=== PATIENT | male | born 1945 | race Caucasian/White ===

== ENCOUNTER 2017-11-29 06:58 | Inpatient (IN) ==
--- NOTE | 2017-11-29 07:26 | PDOC ---
General Adult HPI - General Chief Complaint: Nasal/Mouth Problem /Injury Stated Complaint: nose bleed and dark stools Date Seen by Provider: 11/29/17 Time Seen by Provider: 07:11 Source: POSITIVE: Patient Exam Limitations: POSITIVE: No limitations Nurse's Notes Reviewed & Considered: Yes - History of Present Illness Initial Comment: This is a well-developed, well-nourished, very pleasant, 72-year-old male, complaining of nosebleed and black tarry stool. Patient was awakened at 0600 hrs. this morning with a nosebleed that was quite profuse. He applied pressure and found that he needed to defecate. His stool was black and tarry and this concerned him. Patient is presently on Plavix, warfarin, and aspirin for a St. Dany's mitral valve and 2 cardiac stents. Patient does not smoke or use tobacco or alcohol. At this time he denies any headache, no sore throat, no chest pain or shortness of breath, no nausea vomiting or diarrhea, no abdominal pain, no hematuria or dysuria, no rashes. Have you received a tetanus shot in the past 10 years?: No Body Location Affected: REPORTS: Abdomen, Other (Nose) Timing: REPORTS: Abrupt Duration: 1-3 hours Severity: Moderate Context: REPORTS: Sleep Modifying Factors: improves with: Nothing Similar Symptoms Previously: Yes Recent Care Received: REPORTS: Recently Seen, Treated by MD, Surgery (Cardiac stents) Any Prior Injuries Related to Current Complaint?: No - Patient Home Medications Home Medications: Home Medications warfarin 5 mg tablet 5 mg PO QDAY #90 tab 08/12/17 nitroglycerin 0.4 mg sublingual tablet 0.4 mg SL Q5-15M PRN 8 Days #8744 tab Aspirin [Aspir 81] 81 mg PO .BEDTME 10/19/17 Clopidogrel [Plavix] 75 mg PO DAILY 10/19/17 atorvastatin 10 mg tablet 10 mg PO .BEDTIME #90 tab 10/27/17 - Patient Allergies Allergies/Adverse Reactions: Allergies 3 Allergy/AdvReac Type Severity Reaction Status Date / Time Penicillins Allergy Unknown SWELLING Verified 11/29/17 07:03 erthromycin Allergy Unknown SWELLING Uncoded 11/29/17 07:03 Past Medical History - heen HEENT History: Denies History Cardiovascular History: Valvular Heart Disease Respiratory History: Denies History Gastrointestinal History: Denies History Genitourinary History: Denies History Endocrine History: Denies History Musculoskeletal History: Denies History Prosthesis or Implant: No Neurological History: Denies History Blood Disorders: Denies History Psychiatric History: Denies History History of Sexually Transmitted Diseases: No Cancer History: Denies History In Past Year Been Physically Harmed or Verbally Threatened: No History of MDRO: No History of Other Communicable Diseases: No Tobacco Use: Never Smoker In the Past 12 Months, Have Used or Abuse Any Substance: None Previous Surgical History: Yes Type / Date of Surgery: Mitral valve replacement-1992. Hernia repair x2 ( bilateral inguinal)-2005 Anesthesia Reactions: No Malignant Hyperthermia: No Significant Family History: No pertinent family hx ROS Constitution: REPORTS: Denies Symptoms Cardiovascular: REPORTS: Denies Cardiac Symptoms Respiratory: REPORTS: Denies Resp Symptoms Neurological: REPORTS: Denies Neuro Symptoms Gastrointestinal: REPORTS: Black Stools Endocrine: REPORTS: Denies Symptoms Musculoskeletal: REPORTS: Denies MS Symptoms Genitourinary: REPORTS: Denies Symptoms Eyes: REPORTS: Denies Symptoms ENT: REPORTS: Nose Bleed Skin: REPORTS: Denies Skin Symptoms Lympathic: REPORTS: Denies Lympathic Symptoms Immunologic: POSITIVE: Denies Symptoms Psychiatric: POSITIVE: Denies Psych Symptoms General Adult Exam - General Appearance General Appearance: POSITIVE: Alert, Cooperative, No Acute Distress, No Evidence of Trauma - HEENT HEENT: POSITIVE: Head Inspection Nml, Eyes Inspection Nml, Ears Inspection Nml, Nose Inspection Nml, Oral/Dental Inspect. Nml, Pharynx Inspect. Nml, PERRL, EOMI - Pupils Pupil Size: 5 mm: Bilateral - Neck Neck: POSITIVE: Normal Inspection, Thyroid Normal - Respiratory Respiratory: POSITIVE: No Respiratory Distress, Breath Sounds Normal, Chest Non- Tender - Cardiovascular Cardiovascular: POSITIVE: Regular Rate & Rhythm, No Murmur, No Gallop, PMI Normal Peripheral Pulses: Radial (R): 4+ - Abdomen Abdomen: Soft: (All Quadrants), Normal Bowel Sounds: (All Quadrants), Denies Tenderness: (All Quadrants), No Splenomegaly: (All Quadrants), No Hepatomegaly: (All Quadrants), No Guarding: (All Quadrants), No Rebound: (All Quadrants), No Palpable Pulse: (All Quadrants), No Palpabale Mass: (All Quadrants), No Distention: (All Quadrants), No Rigidity: (All Quadrants) - Rectal Rectal: POSITIVE: Non Tender, Normal Rectal Tone, Black Stool, Heme Positive Stool - Back Back: POSITIVE: Normal Inspection - Skin Skin: POSITIVE: Warm, Dry, No Rash, Pallor - Extremities Extremity: Non-Tender: (All Extremities), Normal ROM: (All Extremities), Normal Inspection: (All Extremities), Pelvis Stable: (All Extremities) - Neurological / Psychological Neurological: POSITIVE: Affect Apporpriate, Oriented X3, Motor Normal, Sensation Normal Procedures - Laceration/Wound Repair Did patient have a laceration repair: No General Adult Progress - Results Reviewed by me Xrays/CTs/US Reviewed by me: No Discussed with Radiologist: No Lab Results Reviewed by Me: Yes Lab Results:: Laboratory Results 3 11/29/17 11/29/17 11/29/17 07:45 07:45 07:45 WBC 3.19 L RBC 3.38 L Hgb 8.8 L Hct 27.9 L MCV 82.5 MCH 26.0 L MCHC 31.5 L RDW Std Deviation 44.3 RDW Coeff of Yamilex 15.2 H Plt Count 225 MPV 11.2 Immature Gran % (Auto) 0 Neut % (Auto) 55.1 Lymph % (Auto) 31.7 [place] % (Auto) 11.0 Eos % (Auto) 1.9 Baso % (Auto) 0.3 Immature Gran # (Auto) 0 Neut # (Auto) 1.76 Lymph # (Auto) 1.01 [place] # (Auto) 0.35 Eos # (Auto) 0.06 Baso # (Auto) 0.01 WBC Morphology Comment Normal morphology Plt Morphology Comment Normal morphology RBC Morph Comment Normal morphology PT 32.9 H INR 3.16 APTT 34.5 Sodium 141 Potassium 3.9 Chloride 110 Carbon Dioxide 23 Anion Gap 8 BUN 18 Creatinine 1.2 BUN/Creatinine Ratio 15.00 Glucose 97 Calculated Osmolality 293.0 H Calcium 9.0 Magnesium 2.0 Total Bilirubin 0.3 AST 43 ALT 35 Alkaline Phosphatase 80 C-Reactive Protein 0.8 Total Protein 7.5 Albumin 4.2 Globulin 3.3 Albumin/Globulin Ratio 1.20 L Ur Collection Type Urine Color Urine Clarity Urine pH Ur Specific [place] Urine Protein Urine Glucose (UA) Urine Ketones Urine Occult Blood Urine Nitrate Urine Bilirubin Urine Urobilinogen Ur Leukocyte Esterase Ur Culture Indicated? 3 11/29/17 08:30 WBC RBC Hgb Hct MCV MCH MCHC RDW Std Deviation RDW Coeff of Yamilex Plt Count MPV Immature Gran % (Auto) Neut % (Auto) Lymph % (Auto) [place] % (Auto) Eos % (Auto) Baso % (Auto) Immature Gran # (Auto) Neut # (Auto) Lymph # (Auto) [place] # (Auto) Eos # (Auto) Baso # (Auto) WBC Morphology Comment Plt Morphology Comment RBC Morph Comment PT INR APTT Sodium Potassium Chloride Carbon Dioxide Anion Gap BUN Creatinine BUN/Creatinine Ratio Glucose Calculated Osmolality Calcium Magnesium Total Bilirubin AST ALT Alkaline Phosphatase C-Reactive Protein Total Protein Albumin Globulin Albumin/Globulin Ratio Ur Collection Type Clean catch urine Urine Color Yellow Urine Clarity Clear Urine pH 7.0 Ur Specific [place] 1.010 Urine Protein Negative Urine Glucose (UA) Negative Urine Ketones Negative Urine Occult Blood Negative Urine Nitrate Negative Urine Bilirubin Negative Urine Urobilinogen 0.2 Ur Leukocyte Esterase Negative Ur Culture Indicated? Culture not set CBC and BMP: 11/29/17 07:45 11/29/17 07:45 - Patient's Progress Pain Medication Addressed: POSITIVE: Not Applicable Re-Examine Time: 08:49 Status: POSITIVE: Unchanged MDM / ED Course: Patient was evaluated, an IV started, blood drawn and sent to lab for studies, CT scan of his abdomen was ordered. Findings: CBC shows white count of 3.19, hemoglobin of 8.8, hematocrit of 27.9, platelets are normal. Coagulation studies show a PTT of 34.5, INR 3.16, and a PTT of 32.9. CMP is normal. CT scan is pending secondary to CT scanner malfunctioning. Assessment: #1 GI bleed. #2 Supratherapeutic INR. #3 epistaxis, resolved. #4 anemia. Plan: Patient is being admitted. CT scan to be performed when CT scanner is up and running. Plan for colonoscopy. Antibiotics Given: No Quality Measure Initiative: CAP: POSITIVE: CXR or CT - Consult Counseled: POSITIVE: Patient, Family, RE: Lab Results, RE: DX, RE: Need for F/U Patient Care Time - Estimated PCT Patient Care Time (In Minutes): 45 Vital Signs - Recent Vital Signs Vital Signs: Vital Signs (Last 8 hours) Temp Pulse Resp BP Pulse Ox 11/29/17 07:17 97.6 F 108 H 16 140/107 99 - VS Reviewed Vital Signs Reviewed: Yes Discharge Clinical Impression: Epistaxis, GI bleed, Supratherapeutic INR Discharge Disposition: Admit to Inpatient Condition: Stable Follow Up With: LOTUS MOSS [Primary Care Provider] - Date Decision to Admit to Inpatient: 11/29/17 Time Decision to Admit to Inpatient: 08:39
[2017-11-29] MEDS ORDERED: Sodium Chloride 0.9% 1,000 ML PRIMARY IV ONE (07:27)
[2017-11-29 07:58] LABS: BASOPHILS # (AUTO) 0.01 10*3/UL; BASOPHILS % (AUTO) 0.3 % (0-1); EOSINOPHILS # (AUTO) 0.06 10*3/UL; EOSINOPHILS % (AUTO) 1.9 % (0-8); Hematocrit [HCT] 27.9 % (42.0-52.0); Hemoglobin [HGB] 8.8 g/dL (14.0-18.0); LYMPHOCYTES # (AUTO) 1.01 10*3/uL; MEAN CORPUSCULAR HGB CONC 31.5 g/dL (33-37); MEAN CORPUSCULAR VOLUME 82.5 FL (80-90); MEAN PLATELET VOLUME 11.2 FL (7.4-12.2); MONOCYTES # (AUTO) 0.35 10*3/UL (0.3-0.8); NEUTROPHILS # (AUTO) 1.76 10*3/UL; NEUTROPHILS % (AUTO) 55.1 % (50-80); RED BLOOD COUNT 3.38 10^6/uL (4.70-6.10)
[2017-11-29 08:00] LABS: PLATELET MORPHOLOGY COMMENT NORMAL MORPHOLOGY (NORM); RBC MORPHOLOGY COMMENT NORMAL MORPHOLOGY (NORM); WBC MORPHOLOGY COMMENT NORMAL MORPHOLOGY (NORM)
[2017-11-29 08:06] LABS: BLOOD UREA NITROGEN 18 mg/dL (7-22); SERUM ALBUMIN 4.2 g/dL (3.5-4.8)
[2017-11-29 08:39] LABS: BILIRUBIN,URINE NEGATIVE (NEG); CLARITY,URINE CLEAR (CLEAR); COLOR,URINE YELLOW (Y); GLUCOSE, URINE (UA) NEGATIVE (NEG); OCCULT BLOOD,URINE NEGATIVE (NEG); PROTEIN,URINE NEGATIVE (NEG); UROBILINOGEN,URINE 0.2 EU/dL (0.2)
[2017-11-29 08:40] LABS: URINE SAMPLE TYPE CLEAN CATCH URINE
--- NOTE | 2017-11-29 10:24 | DI ---
EXAM: CT Abdomen and Pelvis With Intravenous Contrast CLINICAL HISTORY: GI bleed TECHNIQUE: Axial computed tomography images of the abdomen and pelvis with intravenous contrast. COMPARISON: No relevant prior studies available. FINDINGS: Lung bases: Reticular interstitial thickening in the left lung base, nonspecific, likely chronic. ABDOMEN: Liver: 4.8 x 3.0 cm bilobed versus septated benign-appearing hepatic cysts in the right hepatic lobe near the dome. Gallbladder and bile ducts: Unremarkable. No calcified stones. No ductal dilation. Pancreas: Unremarkable. No mass. No ductal dilation. Spleen: Unremarkable. No splenomegaly. Adrenals: Unremarkable. No mass. Kidneys and ureters: Subcentimeter cortical hypodensities in both kidneys, most likely simple cysts. Kidneys otherwise appear unremarkable. No hydronephrosis. Stomach and bowel: No focal or segmental colonic or bowel wall thickening identified. No evidence of diverticulosis. No bowel obstruction. Mild diffuse colonic fecal retention may suggest constipation. PELVIS: Appendix: No findings to suggest acute appendicitis. Bladder: Unremarkable. No mass. Reproductive: Focal radiodense calcifications versus clips posteriorly in the prostate. ABDOMEN and PELVIS: Intraperitoneal space: Unremarkable. No free air. No significant fluid collection. Bones/joints: Grade 1 retrolisthesis of L2 relative to L3 with 3 mm offset. Mild S-shaped scoliotic curvature in the lumbar spine, which may be positional. Multilevel degenerative changes throughout the visualized spine with disc space loss and endplate osteophytes. No acute fracture. No dislocation. Soft tissues: Unremarkable. Vasculature: Unremarkable. No abdominal aortic aneurysm. Lymph nodes: Unremarkable. No enlarged lymph nodes. IMPRESSION: 1. No focal or segmental colonic or bowel wall thickening identified. No evidence of diverticulosis. No bowel obstruction. 2. Mild diffuse colonic fecal retention may suggest constipation. 3. Grade 1 retrolisthesis of L2 relative to L3 with 3 mm offset. 4. 4.8 x 3.0 cm bilobed versus septated benign-appearing hepatic cysts in the right hepatic lobe near the dome.
[2017-11-29] MEDS ORDERED: DOCUSATE 100 MG CAPSULE PO PRN (11:04)
[2017-11-29] MEDS ORDERED: NITROGLYCERIN 0.4 MG SL TAB (BOTTLE OF 3) SL PRN (11:04)
[2017-11-29] MEDS ORDERED: ONDANSETRON 4 MG/2 ML VIAL IVP PRN (11:04)
[2017-11-29] MEDS ORDERED: LIDOCAINE W/ SODIUM BICARB 0.5 ML SYR SUBD PRN (11:04)
[2017-11-29] MEDS ORDERED: ACETAMINOPHEN 325 MG TABLET PO PRN (11:04)
[2017-11-29] MEDS ORDERED: CALCIUM CARBONATE 500 MG (TUMS) CHEWABLE TABLET PO PRN (11:04)
[2017-11-29] MEDS ORDERED: PANTOPRAZOLE IV 40 MG VIAL IVP ONE (12:29)
--- NOTE | 2017-11-29 12:32 | PDOC ---
HPI - History of Present Illness Date of Service: 11/29/17 Time of Service: 12:27 Chief Complaint: epistaxis and black stools. History of Present Illness: This is a 72 YO with a history of [place] Dany mitral valve, CAD s/p recent bare metal stents, and high cholesterol who presents with his daughter (an instructor in the local nursing program) with complaints of a nose bleed that started earlier this AM. The patient states that he gets nosebleeds frequently although he's not had one in the last 6 weeks. He tried a nose clip and stuffed tissues in his nose and this did not seem to work initially. As he could not get it stopped, he came into the emergency room for evaluation. By the time he got to the emergency room, the nosebleed stopped, but he was found to be anemic, and also had black and tarry stool. He was guaiac positive on rectal exam and emergency room. He's never had a ulcer or any other GI bleed. He has a remote colonoscopy in 2004 that was negative. He denies any fever, nausea, vomiting, or weight loss. He has been doing well with his cardiac rehabilitation and has done 16 of 18 therapies, and has not had any dizziness or shortness of breath or lightheadedness. He denies any of those symptoms now. He does not smoke and he does not drink excessive amounts of caffeine. He does not drink alcohol. He is not on any anti-inflammatories. Due to his bare metal stents, he is on Plavix, aspirin, and he also is on Coumadin for his St. Dany mitral valve. He is therapeutic with an INR today of 3.16. He does note that recently had some Lovenox bridging when he resumed his Coumadin post bare metal stents, and had significant and extensive abdominal wall bruising. Past Medical History Medical History: 1. Coronary artery disease status post 2 bare metal stents. 2. Mitral valve dysfunction status post St. Dany mitral valve repair in 1992. 3. Hypercholesteremia Surgical History: 1. St. Dany mitral valve. 2. Heart catheterization as mentioned. 3. Bilateral inguinal hernia repairs Pertinent Family History: Mother of a stroke in her 90s. Father late in life but did have a history of some sort of small bowel cancer. Past Social History: Does not smoke or drink. Has 3 children that are described as healthy. . Lives here in [place], [place]. Tobacco Use: Never Smoker In the Past 12 Months, Have Used or Abuse Any of the Following Substance: None Alcohol Use: None Medication / Allergies Home Medications: Home Medications 3 Medication Instructions Recorded Confirmed Type warfarin 5 mg tablet 5 mg PO QDAY #90 tab 08/12/17 11/29/17 Rx nitroglycerin 0.4 mg sublingual 0.4 mg SL Q5-15M PRN 8 Days #2304 09/16/1711/29 History tablet tab Aspirin [Aspir 81] 81 mg PO .BEDTME 10/19/17 11/29/17 History Clopidogrel [Plavix] 75 mg PO DAILY 10/19/17 11/29/17 History atorvastatin 10 mg tablet 10 mg PO .BEDTIME #90 tab 10/27/17 11/29/17 Rx Allergies/Adverse Reactions: Allergies 3 Allergy/AdvReac Type Severity Reaction Status Date / Time Penicillins Allergy Unknown SWELLING Verified 11/29/17 11:08 erthromycin Allergy Unknown SWELLING Uncoded 11/29/17 11:08 Review of Systems - Review of Systems All Systems: Reviewed & No Additional Complaints Except as Stated (I did a 12 point review systems and it is negative other than that described in history of present illness above.) Exam - Vitals Vital Signs: Vital Signs Temperature 97.4 F Temperature Source Temporal Artery Scan Pulse Rate [Pulse Oximeter] 108 Pulse Rate 73 Respiratory Rate 20 Blood Pressure [Left Arm] 140/107 Blood Pressure 135/99 Pulse Ox 99 Oxygen Delivery Method Room Air Height 5 ft 7 in Weight 133 lb 4.8 oz - General General Appearance: No Acute Distress, Cooperative - Head Head Exam: Normal Inspection, Normocephalic, Atraumatic - Eye Eye Exam: POSITIVE: No Scleral Icterus - Neck Neck Exam: Normal Inspection, No Tenderness, No Lymphadenopathy, No Thyromegaly - Respiratory Respiratory Exam: POSITIVE: Clear to Auscultation - Bilaterally, Breathing Non Labored - Cardiovascular Cardiovascular Exam: POSITIVE: RRR, No Murmur, No Clicks, No Gallops, No Rubs, No JVD - GI/Abdominal GI/Abdominal Exam: POSITIVE: Normal Bowel Sounds, Non Tender, Non Distended, Soft - Rectal Rectal Exam: POSITIVE: Deferred (This was done in the emergency room in the emergency room physician stated to me that it was guaiac positive.) - External Exam: POSITIVE: Deferred Exam: POSITIVE: Deferred - Extremities Extremities Exam: POSITIVE: No Clubbing Present, No Edema Present, No Cyanosis Present - Back Back Exam: POSITIVE: Normal Inspection, No CVA Tenderness - Neurological Neurological Exam: POSITIVE: Alert, Oriented x 3, No Facial Droop, Speech Intact / Clear, Moves All Extremities Equally - Psychiatric Psychiatric Exam: POSITIVE: Normal Affect, Normal Mood - Integumentary Integumentary Exam: POSITIVE: Normal Color, Warm, Dry, Intact Results - Labs CBC and BMP: 11/29/17 07:45 11/29/17 07:45 Additional Lab Results: Laboratory Results 11/29/17 11/29/17 11/29/17 Range/Units 07:45 07:45 07:45 WBC 3.19 L (4.8-10.8) 10^3/uL RBC 3.38 L (4.70-6.10) 10^6/uL Hgb 8.8 L (14.0-18.0) g/dL Hct 27.9 L (42.0-52.0) % MCV 82.5 (80-90) FL MCH 26.0 L (27-31) PG MCHC 31.5 L (33-37) g/dL RDW Std Deviation 44.3 (39-50) fL RDW Coeff of Yamilex 15.2 H (11.5-14.5) % Plt Count 225 (140-350) 10*3/uL MPV 11.2 (7.4-12.2) FL Immature Gran % (Auto) 0 (0-5) % Neut % (Auto) 55.1 (50-80) % Lymph % (Auto) 31.7 (10-50) % [place] % (Auto) 11.0 (5-15) % Eos % (Auto) 1.9 (0-8) % Baso % (Auto) 0.3 (0-1) % Immature Gran # (Auto) 0 10*3/UL Neut # (Auto) 1.76 10*3/UL Lymph # (Auto) 1.01 10*3/uL [place] # (Auto) 0.35 (0.3-0.8) 10*3/UL Eos # (Auto) 0.06 10*3/UL Baso # (Auto) 0.01 10*3/UL WBC Morphology Comment Normal morphology (NORM) Plt Morphology Comment Normal morphology (NORM) RBC Morph Comment Normal morphology (NORM) PT 32.9 H (9.7-11.4) secs INR 3.16 (0.00-5.90) N/A APTT 34.5 (22.6-36.2) SECS Sodium 141 (135-145) meq/L Potassium 3.9 (3.8-5.2) meq/L Chloride 110 (98-112) meq/L Carbon Dioxide 23 (23-33) meq/L Anion Gap 8 (5-20) BUN 18 (7-22) mg/dL Creatinine 1.2 (0.70-1.50) mg/dL BUN/Creatinine Ratio 15.00 (6-20) Glucose 97 (78-110) mg/dL Calculated Osmolality 293.0 H (267-292) mOsm/kg Calcium 9.0 (8.7-10.7) mg/dL Magnesium 2.0 (1.6-2.4) mg/dL Total Bilirubin 0.3 (0.3-1.2) mg/dL AST 43 (21-57) IU/L ALT 35 (21-72) IU/L Alkaline Phosphatase 80 (38-126) IU/L C-Reactive Protein 0.8 (0.0-0.9) mg/dL Total Protein 7.5 (6.1-8.0) g/dL Albumin 4.2 (3.5-4.8) g/dL Globulin 3.3 (2.50-4.10) g/dL Albumin/Globulin Ratio 1.20 L (1.3-2.0) mg/g TSH (0.2700-4.2000) uIU/mL Free T4 (0.93-1.71) ng/dL Ur Collection Type Urine Color (Y) Urine Clarity (CLEAR) Urine pH (5.0-8.5) Ur Specific [place] (1.005-1.030) Urine Protein (NEG) mg/dl Urine Glucose (UA) (NEG) mg/dL Urine Ketones (NEG) Urine Occult Blood (NEG) Urine Nitrate (NEG) Urine Bilirubin (NEG) Urine Urobilinogen (0.2) EU/dL Ur Leukocyte Esterase (NEG) Ur Culture Indicated? 11/29/17 11/29/17 Range/Units 07:45 08:30 WBC (4.8-10.8) 10^3/uL RBC (4.70-6.10) 10^6/uL Hgb (14.0-18.0) g/dL Hct (42.0-52.0) % MCV (80-90) FL MCH (27-31) PG MCHC (33-37) g/dL RDW Std Deviation (39-50) fL RDW Coeff of Yamilex (11.5-14.5) % Plt Count (140-350) 10*3/uL MPV (7.4-12.2) FL Immature Gran % (Auto) (0-5) % Neut % (Auto) (50-80) % Lymph % (Auto) (10-50) % [place] % (Auto) (5-15) % Eos % (Auto) (0-8) % Baso % (Auto) (0-1) % Immature Gran # (Auto) 10*3/UL Neut # (Auto) 10*3/UL Lymph # (Auto) 10*3/uL [place] # (Auto) (0.3-0.8) 10*3/UL Eos # (Auto) 10*3/UL Baso # (Auto) 10*3/UL WBC Morphology Comment (NORM) Plt Morphology Comment (NORM) RBC Morph Comment (NORM) PT (9.7-11.4) secs INR (0.00-5.90) N/A APTT (22.6-36.2) SECS Sodium (135-145) meq/L Potassium (3.8-5.2) meq/L Chloride (98-112) meq/L Carbon Dioxide (23-33) meq/L Anion Gap (5-20) BUN (7-22) mg/dL Creatinine (0.70-1.50) mg/dL BUN/Creatinine Ratio (6-20) Glucose (78-110) mg/dL Calculated Osmolality (267-292) mOsm/kg Calcium (8.7-10.7) mg/dL Magnesium (1.6-2.4) mg/dL Total Bilirubin (0.3-1.2) mg/dL AST (21-57) IU/L ALT (21-72) IU/L Alkaline Phosphatase (38-126) IU/L C-Reactive Protein (0.0-0.9) mg/dL Total Protein (6.1-8.0) g/dL Albumin (3.5-4.8) g/dL Globulin (2.50-4.10) g/dL Albumin/Globulin Ratio (1.3-2.0) mg/g TSH 5.13 H (0.2700-4.2000) uIU/mL Free T4 0.87 L (0.93-1.71) ng/dL Ur Collection Type Clean catch urine Urine Color Yellow (Y) Urine Clarity Clear (CLEAR) Urine pH 7.0 (5.0-8.5) Ur Specific [place] 1.010 (1.005-1.030) Urine Protein Negative (NEG) mg/dl Urine Glucose (UA) Negative (NEG) mg/dL Urine Ketones Negative (NEG) Urine Occult Blood Negative (NEG) Urine Nitrate Negative (NEG) Urine Bilirubin Negative (NEG) Urine Urobilinogen 0.2 (0.2) EU/dL Ur Leukocyte Esterase Negative (NEG) Ur Culture Indicated? Culture not set - Imaging Status: Report Reviewed by Me (Abdominal pelvis CT scan is negative for any mass. There may be a benign liver cyst of some type. No source of bleeding noted) Assessment and Plan - Patient Problems (1) GI bleed Current Visit: Yes Status: Acute Code(s): K92.2 - Gastrointestinal hemorrhage, unspecified Qualifiers: GI bleed type/associated pathology: unspecified gastrointestinal hemorrhage type Qualified Code(s): K92.2 - Gastrointestinal hemorrhage, unspecified (2) Coronary artery disease Current Visit: Yes Status: Acute Code(s): I25.10 - Atherosclerotic heart disease of [place] coronary artery without angina pectoris Qualifiers: Coronary Disease-Associated Artery/Lesion type: [place] artery [place] vs. 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 Based on the recent placement of bare metal stents, and probable need for endoscopy both above and below, I think that the patient would be better served to have these procedures done in the hospital where cardiology is available should the patient experience in-stent restenosis. Hold Coumadin today, I would like to avoid vitamin K if possible and go ahead and start Protonix drip. Allow clear liquids. I will get iron studies and B12 and folate level. Patient does have what appears to be hypothyroidism with an elevated TSH and a low free T4. I think this is probably real and think the patient should start on some Synthroid replacement. Check CBC later today (ordered for here if the patient remains here) Discussed CODE STATUS, full code. I did discuss that the patient will need bridging to resume Coumadin post endoscopy studies. Patient and his daughter agree with the above plan.
--- NOTE | 2017-11-29 13:16 | DCSUMMARY ---
Hospitalization Summary Admit Date: 11/29/2017 Discharge Date: 11/29/17 Primary Diagnosis:: GI bleed of unclear source Secondary Diagnosis:: Coronary artery disease status post recent bare metal stents on Plavix, [place] mitral valve Hospital Course: Please refer to the history and physical exam dictated today for the history of present illness, in short this is a 72-year-old male with a [place] [place] mitral valve that came in with an epistaxis presentation, and though that resolved, he also had black and tarry stools and was guaiac positive on exam with a hemoglobin that was 4 points lower than it was in September 2017. He is admitted with what appears to be a slow, acute GI bleed, but because of bare metal stents , would do better having any potential EGD or gastrointestinal workup in a facility where people can respond should he have any in-stent restenosis coming off of Plavix. I spoke with the physicians at [facility] and they agreed to accept the patient's care. A CT scan here of the abdomen and pelvis was negative for any source of GI bleed. Assessment and Plan: 1. As per discharge assessments noted 2. Disposition: Patient is discharged to [facility] 3. Condition on discharge, stable and improved. Based on the nature GI bleeds, the patient's condition certainly could deteriorate 4. Diet: I have the patient on clear liquids right now 5. Activities: As per [facility] 6. Follow-Up: 1. Dr. Vinson 1 week post [facility] stay 2. 7. Medications at the Time of Discharge: Active Medications Generic Name Dose Route Start Last Admin Trade Name Freq PRN Reason Stop Dose Admin Acetaminophen 650 mg 11/29/17 11:04 Tylenol PO Q6H PRN Pain or Fever Atorvastatin Calcium 10 mg 11/29/17 21:00 Lipitor PO BEDTIME CLARITZA Calcium Carbonate 1 - 2 tab 11/29/17 11:04 Tums PO Q6H PRN Heartburn Docusate Sodium 100 mg 11/29/17 11:04 Colace PO BID PRN Constipation Sodium Chloride 1,000 mls @ 125 mls/hr 11/29/17 07:27 11/29/17 07:48 Normal Saline PRIMARY IV 11/29/17 15:26 125 mls/hr ONCE (ED) ONE Administration Sodium Chloride 25 mls @ 200 mls/hr 11/29/17 11:04 Normal Saline 0.9% IV .Post Infusion PRN No Primary IV for Flush ONLY Pantoprazole Sodium 80 mg/ 100 mls @ 10 mls/hr 11/29/17 11:04 11/29/17 12:38 Sodium Chloride IV 10 mls/hr .Continuous CLARITZA Administration Lidocaine HCl 0.5 ml 11/29/17 11:04 Lidocaine Buffered Inj SUBD ONCE PRN IV Starts Nitroglycerin 1 tab 11/29/17 11:04 Nitrostat Sl 0.4mg Tab SL Q5M PRN Chest Pain Ondansetron HCl 4 mg 11/29/17 11:04 Zofran Inj IVP Q4H PRN NAUSEA / VOMITING * I am starting low dose synthroid at 25 mcg PO daily with elevated TSH and free T4. 8. Time, care, counseling and coordination of care for this discharge is greater than 30 minutes. Exam - Vitals Vital Signs: Vital Signs Temperature 97.4 F Temperature Source Temporal Artery Scan Pulse Rate [Pulse Oximeter] 108 Pulse Rate 73 Respiratory Rate 20 Blood Pressure [Left Arm] 140/107 Blood Pressure 135/99 Pulse Ox 99 Oxygen Delivery Method Room Air Height 5 ft 7 in Weight 133 lb 4.8 oz - General General Appearance: No Acute Distress, Cooperative - Eye Eye Exam: POSITIVE: No Scleral Icterus - Respiratory Respiratory Exam: POSITIVE: Clear to Auscultation - Bilaterally, Breathing Non Labored - Cardiovascular Cardiovascular Exam: POSITIVE: No Murmur, No Clicks, No Gallops, No Rubs, Tachycardia, No JVD - GI/Abdominal GI/Abdominal Exam: POSITIVE: Normal Bowel Sounds, Non Tender, Non Distended, Soft - Extremities Extremities Exam: POSITIVE: No Clubbing Present, No Edema Present, No Cyanosis Present - Neurological Neurological Exam: POSITIVE: Alert, Oriented x 3, No Facial Droop, Speech Intact / Clear, Moves All Extremities Equally Data Peritnent Studies: Laboratory Results 11/29/17 11/29/17 11/29/17 Range/Units 07:45 07:45 07:45 WBC 3.19 L (4.8-10.8) 10^3/uL RBC 3.38 L (4.70-6.10) 10^6/uL Hgb 8.8 L (14.0-18.0) g/dL Hct 27.9 L (42.0-52.0) % MCV 82.5 (80-90) FL MCH 26.0 L (27-31) PG MCHC 31.5 L (33-37) g/dL RDW Std Deviation 44.3 (39-50) fL RDW Coeff of Yamilex 15.2 H (11.5-14.5) % Plt Count 225 (140-350) 10*3/uL MPV 11.2 (7.4-12.2) FL Immature Gran % (Auto) 0 (0-5) % Neut % (Auto) 55.1 (50-80) % Lymph % (Auto) 31.7 (10-50) % Starr % (Auto) 11.0 (5-15) % Eos % (Auto) 1.9 (0-8) % Baso % (Auto) 0.3 (0-1) % Immature Gran # (Auto) 0 10*3/UL Neut # (Auto) 1.76 10*3/UL Lymph # (Auto) 1.01 10*3/uL Starr # (Auto) 0.35 (0.3-0.8) 10*3/UL Eos # (Auto) 0.06 10*3/UL Baso # (Auto) 0.01 10*3/UL WBC Morphology Comment Normal morphology (NORM) Plt Morphology Comment Normal morphology (NORM) RBC Morph Comment Normal morphology (NORM) PT 32.9 H (9.7-11.4) secs INR 3.16 (0.00-5.90) N/A APTT 34.5 (22.6-36.2) SECS Sodium 141 (135-145) meq/L Potassium 3.9 (3.8-5.2) meq/L Chloride 110 (98-112) meq/L Carbon Dioxide 23 (23-33) meq/L Anion Gap 8 (5-20) BUN 18 (7-22) mg/dL Creatinine 1.2 (0.70-1.50) mg/dL BUN/Creatinine Ratio 15.00 (6-20) Glucose 97 (78-110) mg/dL Calculated Osmolality 293.0 H (267-292) mOsm/kg Calcium 9.0 (8.7-10.7) mg/dL Magnesium 2.0 (1.6-2.4) mg/dL Total Bilirubin 0.3 (0.3-1.2) mg/dL AST 43 (21-57) IU/L ALT 35 (21-72) IU/L Alkaline Phosphatase 80 (38-126) IU/L C-Reactive Protein 0.8 (0.0-0.9) mg/dL Total Protein 7.5 (6.1-8.0) g/dL Albumin 4.2 (3.5-4.8) g/dL Globulin 3.3 (2.50-4.10) g/dL Albumin/Globulin Ratio 1.20 L (1.3-2.0) mg/g TSH (0.2700-4.2000) uIU/mL Free T4 (0.93-1.71) ng/dL Ur Collection Type Urine Color (Y) Urine Clarity (CLEAR) Urine pH (5.0-8.5) Ur Specific Shirley (1.005-1.030) Urine Protein (NEG) mg/dl Urine Glucose (UA) (NEG) mg/dL Urine Ketones (NEG) Urine Occult Blood (NEG) Urine Nitrate (NEG) Urine Bilirubin (NEG) Urine Urobilinogen (0.2) EU/dL Ur Leukocyte Esterase (NEG) Ur Culture Indicated? 11/29/17 11/29/17 Range/Units 07:45 08:30 WBC (4.8-10.8) 10^3/uL RBC (4.70-6.10) 10^6/uL Hgb (14.0-18.0) g/dL Hct (42.0-52.0) % MCV (80-90) FL MCH (27-31) PG MCHC (33-37) g/dL RDW Std Deviation (39-50) fL RDW Coeff of Yamilex (11.5-14.5) % Plt Count (140-350) 10*3/uL MPV (7.4-12.2) FL Immature Gran % (Auto) (0-5) % Neut % (Auto) (50-80) % Lymph % (Auto) (10-50) % Starr % (Auto) (5-15) % Eos % (Auto) (0-8) % Baso % (Auto) (0-1) % Immature Gran # (Auto) 10*3/UL Neut # (Auto) 10*3/UL Lymph # (Auto) 10*3/uL Starr # (Auto) (0.3-0.8) 10*3/UL Eos # (Auto) 10*3/UL Baso # (Auto) 10*3/UL WBC Morphology Comment (NORM) Plt Morphology Comment (NORM) RBC Morph Comment (NORM) PT (9.7-11.4) secs INR (0.00-5.90) N/A APTT (22.6-36.2) SECS Sodium (135-145) meq/L Potassium (3.8-5.2) meq/L Chloride (98-112) meq/L Carbon Dioxide (23-33) meq/L Anion Gap (5-20) BUN (7-22) mg/dL Creatinine (0.70-1.50) mg/dL BUN/Creatinine Ratio (6-20) Glucose (78-110) mg/dL Calculated Osmolality (267-292) mOsm/kg Calcium (8.7-10.7) mg/dL Magnesium (1.6-2.4) mg/dL Total Bilirubin (0.3-1.2) mg/dL AST (21-57) IU/L ALT (21-72) IU/L Alkaline Phosphatase (38-126) IU/L C-Reactive Protein (0.0-0.9) mg/dL Total Protein (6.1-8.0) g/dL Albumin (3.5-4.8) g/dL Globulin (2.50-4.10) g/dL Albumin/Globulin Ratio (1.3-2.0) mg/g TSH 5.13 H (0.2700-4.2000) uIU/mL Free T4 0.87 L (0.93-1.71) ng/dL Ur Collection Type Clean catch urine Urine Color Yellow (Y) Urine Clarity Clear (CLEAR) Urine pH 7.0 (5.0-8.5) Ur Specific Shirley 1.010 (1.005-1.030) Urine Protein Negative (NEG) mg/dl Urine Glucose (UA) Negative (NEG) mg/dL Urine Ketones Negative (NEG) Urine Occult Blood Negative (NEG) Urine Nitrate Negative (NEG) Urine Bilirubin Negative (NEG) Urine Urobilinogen 0.2 (0.2) EU/dL Ur Leukocyte Esterase Negative (NEG) Ur Culture Indicated? Culture not set Procedures: [address] [facility] [place] [address] PH: DD: [phone] FAX: [phone] ~DIAGNOSTIC IMAGING REPORT~ Patient: Stan Tidwell : 1945 Sex: M Age: 72 Exam Name: CT Abdomen/Pelvis W Contrast Exam Date: 11/29/17 Report # : [id number] CPT Code: 42240 EMR/MR #: [id number] Ordering: Rashad Jones Admiting: TEJ SCHREIBER DO Primary: Iris Vinson MD Attending: TEJ SCHREIBER DO Signed EXAM: CT Abdomen and Pelvis With Intravenous Contrast CLINICAL HISTORY: GI bleed TECHNIQUE: Axial computed tomography images of the abdomen and pelvis with intravenous contrast. COMPARISON: No relevant prior studies available. FINDINGS: Lung bases: Reticular interstitial thickening in the left lung base, nonspecific, likely chronic. ABDOMEN: Liver: 4.8 x 3.0 cm bilobed versus septated benign-appearing hepatic cysts in the right hepatic lobe near the dome. Gallbladder and bile ducts: Unremarkable. No calcified stones. No ductal dilation. Pancreas: Unremarkable. No mass. No ductal dilation. Spleen: Unremarkable. No splenomegaly. Adrenals: Unremarkable. No mass. Kidneys and ureters: Subcentimeter cortical hypodensities in both kidneys, most likely simple cysts. Kidneys otherwise appear unremarkable. No hydronephrosis. Stomach and bowel: No focal or segmental colonic or bowel wall thickening identified. No evidence of diverticulosis. No bowel obstruction. Mild diffuse colonic fecal retention may suggest constipation. PELVIS: Appendix: No findings to suggest acute appendicitis. Bladder: Unremarkable. No mass. Reproductive: Focal radiodense calcifications versus clips posteriorly in the prostate. ABDOMEN and PELVIS: Intraperitoneal space: Unremarkable. No free air. No significant fluid collection. Bones/joints: Grade 1 retrolisthesis of L2 relative to L3 with 3 mm offset. Mild S-shaped scoliotic curvature in the lumbar spine, which may be positional. Multilevel degenerative changes throughout the visualized spine with disc space loss and endplate osteophytes. No acute fracture. No dislocation. Soft tissues: Unremarkable. Vasculature: Unremarkable. No abdominal aortic aneurysm. Lymph nodes: Unremarkable. No enlarged lymph nodes. IMPRESSION: 1. No focal or segmental colonic or bowel wall thickening identified. No evidence of diverticulosis. No bowel obstruction. 2. Mild diffuse colonic fecal retention may suggest constipation. 3. Grade 1 retrolisthesis of L2 relative to L3 with 3 mm offset. 4. 4.8 x 3.0 cm bilobed versus septated benign-appearing hepatic cysts in the right hepatic lobe near the dome. Dictated By: Cem Peraza MD., PHD. Signed By: 11/29/17 [facility] Cem Peraza MD., PHD. Patient Problems - Patient Problem List (1) GI bleed Current Visit: Yes Status: Acute Code(s): K92.2 - Gastrointestinal hemorrhage, unspecified Qualifiers: GI bleed type/associated pathology: unspecified gastrointestinal hemorrhage type Qualified Code(s): K92.2 - Gastrointestinal hemorrhage, unspecified Category: Medical (2) Coronary artery disease Current Visit: Yes Status: Acute Code(s): I25.10 - Atherosclerotic heart disease of [place] coronary artery without angina pectoris Qualifiers: Coronary Disease-Associated Artery/Lesion type: [place] artery [place] vs. transplanted heart: [place] heart Associated angina: without angina Qualified Code(s): I25.10 - Atherosclerotic heart disease of [place] coronary artery without angina pectoris Category: Medical (3) Hypercholesterolemia Current Visit: Yes Status: Acute Code(s): E78.00 - Pure hypercholesterolemia , unspecified Category: Medical (4) Epistaxis Current Visit: Yes Status: Acute Code(s): R04.0 - Epistaxis Category: Medical (5) equipment [employer] current use of anticoagulants with INR goal of 2.5-3.5 Current Visit: Yes Status: Chronic Code(s): Z79.01 - equipment [employer] (current) use of anticoagulants Category: Medical (6) Acute blood loss anemia Current Visit: Yes Status: Acute Code(s): D62 - Acute posthemorrhagic anemia Category: Medical (7) Hypothyroidism Current Visit: Yes Status: Acute Code(s): E03.9 - Hypothyroidism, unspecified Qualifiers: Hypothyroidism type: acquired Qualified Code(s): E03.9 - Hypothyroidism, unspecified Category: Medical
[2017-11-29 13:39] VITALS: BP 155/72; RESP 16; TEMP 97.1; O2SAT 96
[2017-11-29] MEDS ORDERED: Sodium Chloride 0.9% 1,000 ML ONE (16:57)
[2017-11-29] MEDS ORDERED: ATORVASTATIN 10 MG TABLET PO SCH (21:00)
== END 2017-11-29 13:55 | disposition short-term general hospital (02) | DRG 378 ==
LOC: ER 06:58 → MED/SURG 09:10
PROVIDERS: ADMIT Family Medicine; ATTEND Family Medicine